=== PATIENT | female | born 1995 | race African-American/Black ===

== ENCOUNTER 2023-06-29 01:15 | Observation (INO) | payer MEDICAID, OTHER ==
[~2023-06-29] VITALS: Ht 160 cm; Wt 64.4 kg
[2023-06-29] MEDS ORDERED: PREN-176 PO (02:01)
[2023-06-29] MEDS ORDERED: LACTATED RINGERS 1,000 ML IV SCH (02:30)
[2023-06-29 02:59] LABS: CLARITY URINE CLEAR (CLEAR); COLOR URINE YELLOW (YELLOW); GLUCOSE URINE NEGATIVE (NEGATIVE); KETONES URINE NEGATIVE (NEGATIVE); LEUKOCYTE ESTERASE URINE 1+ (NEGATIVE); NITRITE URINE NEGATIVE (NEGATIVE); OCCULT BLOOD URINE NEGATIVE (NEGATIVE); PROTEIN URINE NEGATIVE (NEGATIVE); SPECIFIC GRAVITY URINE 1.016 (1.005-1.030)
[2023-06-29] MEDS: TERBUTALINE SULFATE 1MG/ML VIAL SUBCUT PRN ×2 (03:13→04:15)
[2023-06-29 04:27] LABS: SQUAMOUS EPITHELIAL CELL URINE FEW /lpf (RARE/1+)
[2023-06-29 04:28] LABS: BACTERIA URINE 1+; RBC URINE 0-2 /hpf (0-2)
== END 2023-06-29 07:06 | disposition home or self-care (01) ==
LOC: 8 EST LDRP 01:15
PROVIDERS: ADMIT Obstetrics & Gynecology; ATTEND Obstetrics & Gynecology
DX: O26.892 Other specified pregnancy related conditions, second trimester (principal); R10.30 Lower abdominal pain, unspecified; N89.8 Other specified noninflammatory disorders of vagina; M54.50 Low back pain, unspecified; O62.9 Abnormality of forces of labor, unspecified; Z3A.27 27 weeks gestation of pregnancy
CPT/HCPCS: 96372; 96360; 96361; 81003; 76818; 76805; 76817; J3105; G0378 ×2